=== PATIENT | female | born 1970 | race Caucasian/White ===

== ENCOUNTER 2022-03-08 11:38 | Outpatient (CLI) | payer BC | END 2022-03-08 11:39 | disposition home or self-care (01) | LOC: CSHMAMMO 11:38 | PROVIDERS: ATTEND Obstetrics & Gynecology | DX: Z12.31 Encounter for screening mammogram for malignant neoplasm of breast (principal); Z13.820 Encounter for screening for osteoporosis; N95.1 Menopausal and female climacteric states; Z82.62 Family history of osteoporosis; M81.0 Age-related osteoporosis without current pathological fracture; M85.851 Other specified disorders of bone density and structure, right thigh | CPT/HCPCS: 77063; 77067; 77080 ==

== ENCOUNTER 2024-04-12 07:46 | Outpatient (CLI) | payer BC | END 2024-04-12 07:47 | disposition home or self-care (01) | LOC: CSHMAMMO 07:46 | PROVIDERS: ATTEND Obstetrics & Gynecology | DX: Z12.31 Encounter for screening mammogram for malignant neoplasm of breast (principal) | CPT/HCPCS: 77063; 77067 ==